=== PATIENT | female | born 2000 | race African-American/Black ===

== ENCOUNTER 2024-06-01 22:41 | Emergency (ER) | payer MEDICAID ==
[~2024-06-01] VITALS: Ht 170.2 cm; Wt 82.0 kg
[2024-06-01 22:44] VITALS: TEMP 96.8; O2SAT 100
[2024-06-01] MEDS ORDERED: SODIUM CHLORIDE 0.9% 1,000 ML IV ONE (23:45)
[2024-06-02 00:05] LABS: BASOPHILS % 1.1 % (0.0-2.0); EOSINOPHILS % 0.2 % (0.0-5.0); HEMATOCRIT. 35.5 % (36.0-48.0); HEMOGLOBIN. 11.7 g/dL (12.0-16.0); LYMPHOCYTES % 32.7 % (20.0-50.0); MEAN CORPUSCULAR HEMOGLOBIN 29.2 pg (28.0-32.0); MEAN CORPUSCULAR VOLUME 88.5 fL (81.0-99.0); MEAN PLATELET VOLUME 7.4 fl (7.4-10.4); PLATELET 328 x1000/uL (130-400); RED BLOOD CELL COUNT 4.01 mill/uL (4.2-5.4); RED CELL DISTRIBUTION WIDTH 16.6 % (11.6-14.6); WHITE BLOOD COUNT 4.4 x1000/uL (4.5-11.0)
[2024-06-02 00:23] LABS: CHLORIDE 107 mEq/L (98-107); POTASSIUM 3.7 mEq/L (3.5-5.1); SODIUM 138 mEq/L (136-145)
[2024-06-02 00:24] LABS: CARBON DIOXIDE 25 mEq/L (21-32)
[2024-06-02 00:25] LABS: CALCIUM 9.4 mg/dL (8.7-10.4)
[2024-06-02 00:27] LABS: HCG SCREEN NEGATIVE
[2024-06-02 00:29] LABS: CREATININE 0.8 mg/dL (0.6-1.0)
[2024-06-02 00:30] LABS: GLUCOSE 91 mg/dL (70-105); UREA NITROGEN BLOOD 8 mg/dL (9-23)
[2024-06-02] MEDS: METOCLOPRAMIDE HCL 10MG/2ML VIAL IV STA (03:42)
[2024-06-02] MEDS: KETOROLAC 30MG/ML VIAL IV STA (03:47)
[2024-06-02] MEDS ORDERED: ONDA4TAB50 MT (04:33)
[2024-06-02 06:27] VITALS: BP 100/53; PULSE 64; RESP 12
== END 2024-06-02 06:30 | disposition home or self-care (01) ==
LOC: ER 22:41
DX: R10.11 Right upper quadrant pain (principal); R11.2 Nausea with vomiting, unspecified; F12.10 Cannabis abuse, uncomplicated; Z98.84 Bariatric surgery status
CPT/HCPCS: 80048; 84703; 83605; 83690; 85025; 36415; 76705; 99285; 74176; 96374; 96375; J7030; J1885; J2765; Z7610

== ENCOUNTER 2024-06-27 23:39 | Emergency (ER) | payer MEDICAID ==
[~2024-06-27] VITALS: Ht 167.6 cm; Wt 82.0 kg
[~2024-06-27 23:39] MED LIST: ONDA4TAB50 MT
[2024-06-28 00:02] VITALS: BP 138/95; PULSE 71; RESP 18; TEMP 98.3; O2SAT 99
[2024-06-28] MEDS ORDERED: POLY17PO3 MT (02:20)
[2024-06-28] MEDS ORDERED: DOCU-138 MT (02:20)
[2024-06-28] MEDS ORDERED: HYDR25SU37 RC (02:20)
[2024-06-28] MEDS ORDERED: FLUC150T46 MT (02:20)
== END 2024-06-28 02:43 | disposition home or self-care (01) ==
LOC: ER 23:52
DX: K64.9 Unspecified hemorrhoids (principal); N76.0 Acute vaginitis; F12.10 Cannabis abuse, uncomplicated
CPT/HCPCS: 99283

== ENCOUNTER 2025-01-20 13:15 | Emergency (ER) | payer MEDICAID ==
[~2025-01-20] VITALS: Ht 172.7 cm; Wt 77.0 kg
[~2025-01-20 13:15] MED LIST changes: +DOCU-138 MT; +FLUC150T46 MT; +HYDR25SU37 RC; +POLY17PO3 MT
[2025-01-20 13:22] VITALS: O2SAT 99
[2025-01-20 13:37] VITALS: BP 110/78; PULSE 96; RESP 20; TEMP 36.7; O2SAT 100
[2025-01-20 14:07] LABS: BASOPHILS % 0.2 % (0.0-2.0); EOSINOPHILS % 0.5 % (0.0-5.0); HEMATOCRIT. 35.8 % (36.0-48.0); HEMOGLOBIN. 11.4 g/dL (12.0-16.0); LYMPHOCYTES % 36.2 % (20.0-50.0); MEAN CORPUSCULAR HEMOGLOBIN 28.2 pg (28.0-32.0); MEAN CORPUSCULAR HGB CONC 31.9 g/dL (31.0-37.0); MEAN CORPUSCULAR VOLUME 88.5 fL (81.0-99.0); MEAN PLATELET VOLUME 7.3 fl (7.4-10.4); MONOCYTES % 12.4 % (2.0-8.0); NEUTROPHILS % 50.7 % (40.0-76.0); PLATELET 259 x1000/uL (130-400); RED BLOOD CELL COUNT 4.05 mill/uL (4.2-5.4); WHITE BLOOD COUNT 3.3 x1000/uL (4.5-11.0)
[2025-01-20 14:11] LABS: CHLORIDE 106 mEq/L (98-107); POTASSIUM 3.7 mEq/L (3.5-5.1); SODIUM 140 mEq/L (136-145)
[2025-01-20 14:12] LABS: CARBON DIOXIDE 25 mEq/L (21-32)
[2025-01-20 14:13] LABS: CALCIUM 9.4 mg/dL (8.7-10.4)
[2025-01-20 14:17] LABS: CREATININE 0.7 mg/dL (0.6-1.0); GLUCOSE 78 mg/dL (70-105)
[2025-01-20 14:21] LABS: PARTIAL THROMBOPLASTIN TIME 27.6 sec (23.4-31.0); PROTHROMBIN TIME 10.5 sec (9.6-11.0)
[2025-01-20 14:25] LABS: UREA NITROGEN BLOOD < 5 mg/dL (9-23)
[2025-01-20] MEDS ORDERED: DOCU-155 MT (14:54)
[2025-01-20] MEDS ORDERED: FEO PR (14:54)
[2025-01-20] MEDS ORDERED: SIME125C MT (14:54)
[2025-01-20] MEDS ORDERED: LACT1CAP78 MT (14:54)
[2025-01-20] MEDS ORDERED: TOPUD PO (14:58)
[2025-01-20 15:51] LABS: ALANINE AMINOTRANSFERASE 11 IU/L (10-49); ALBUMIN 4.4 g/dL (3.2-4.8); ASPARTATE AMINOTRANSFERASE 19 IU/L (<34); BILIRUBIN DIRECT 0.3 mg/dL (<=3.0); PROTEIN TOTAL 7.7 g/dL (6.0-8.3)
[2025-01-20 15:56] LABS: HCG SCREEN NEGATIVE
== END 2025-01-20 15:02 | disposition home or self-care (01) ==
LOC: ER 13:15
DX: K62.5 Hemorrhage of anus and rectum (principal); D64.9 Anemia, unspecified; K59.00 Constipation, unspecified; F10.90 Alcohol use, unspecified, uncomplicated; F12.90 Cannabis use, unspecified, uncomplicated; Z98.84 Bariatric surgery status; Y90.9 Presence of alcohol in blood, level not specified
CPT/HCPCS: 36415; 80048; 80076; 84703; 85025; 86850; 86900; 99283

== ENCOUNTER 2025-01-26 03:58 | Emergency (ER) | payer MEDICAID ==
[~2025-01-26] VITALS: Ht 170.2 cm; Wt 96.0 kg
[~2025-01-26 03:58] MED LIST changes: +DOCU-155 MT; +FEO PR; +LACT1CAP78 MT; +SIME125C MT; +TOPUD PO
[2025-01-26 04:07] VITALS: O2SAT 99
[2025-01-26 05:48] VITALS: BP 118/76; PULSE 89; RESP 16; TEMP 36.7; O2SAT 100
== END 2025-01-26 05:52 ==
LOC: ER 03:58
DX: T74.21XA Adult sexual abuse, confirmed, initial encounter (principal); Z79.899 Other long term (current) drug therapy; Z98.890 Other specified postprocedural states; Y93.89 Activity, other specified; Y92.89 Other specified places as the place of occurrence of the external cause; Y99.8 Other external cause status
CPT/HCPCS: 99281